=== PATIENT | male | born 1980 | race Caucasian/White ===

== ENCOUNTER 2021-02-25 11:29 | Emergency (ER) | payer SELFPAY ==
[~2021-02-25] VITALS: Ht 180.3 cm; Wt 75.0 kg
[2021-02-25 11:30] VITALS: BP 150/97; Ht 180.3 cm; Wt 75.0 kg
[2021-02-25] MEDS ORDERED: HUMULIN R100 UNIT/1 SC (11:33)
[2021-02-25 12:29] LABS: BASOPHILS 0.1 % (0-2); EOSINOPHILS 0.9 % (0-7); HEMATOCRIT 41.3 % (42.0-54.0); HEMOGLOBIN 14.8 g/dL (13.5-17.5); IMMATURE GRANULOCYTES 0.2 % (0-5); LYMPHOCYTES 16.9 % (15-50); MCH 31.3 pg (26.0-34.0); MCHC 35.8 g/dL (31.0-37.0); MCV 87.3 fL (80.0-100.0); MEAN PLATELET VOLUME 10.2 fL (7.4-10.4); MONOCYTES 8.4 % (2-11); NEUTROPHIL ABS# 6.53 10x3/uL (1.78-5.38); NEUTROPHILS 73.5 % (40-80); PLATELET COUNT 233 10x3/uL (130-400); RBC 4.73 10x6/uL (4.20-6.10); RDW 12.2 % (11.5-14.5); WBC 8.9 10x3/uL (4.8-10.8)
[2021-02-25 12:40] LABS: CALC OSMOLALITY 282 mosm/kg (275-300); CARBON DIOXIDE 23.4 mmol/L (21.0-32.0); CHLORIDE - SERUM 97 mmol/L (98-107); CREATININE - SERUM 0.8 mg/dL (0.6-1.3); GLUCOSE 327 mg/dL (74-106); POTASSIUM - SERUM 4.3 mmol/L (3.5-5.1); SODIUM 135 mmol/L (136-145); UREA NITROGEN 12 mg/dL (7-18); eGFR NON AFRICAN AMERICAN > 90 mL/min (90-120)
[2021-02-25 12:44] LABS: APTT 26.9 SECONDS (22.8-39.4); INR 1.14 (0.85-1.17); PROTIME 13.5 SECONDS (11.6-15.0)
[2021-02-25 12:45] LABS: ALBUMIN 3.9 g/dL (3.4-5.0); ALKALINE PHOSPHATASE 117 U/L (30-120); ALT (SGPT) 25 U/L (10-68); BILIRUBIN - TOTAL 0.74 mg/dL (0.2-1.3); PROTEIN - SERUM 7.5 g/dL (6.4-8.2)
== END 2021-02-25 14:28 | disposition other institution (70) ==
LOC: D.ER 11:29
PROVIDERS: Family Medicine
DX: S92.002A Unspecified fracture of left calcaneus, initial encounter for closed fracture (principal); S92.001A Unspecified fracture of right calcaneus, initial encounter for closed fracture; W17.89XA Other fall from one level to another, initial encounter; Y93.9 Activity, unspecified; Y92.9 Unspecified place or not applicable